=== PATIENT | male | born 1980 | race Caucasian/White ===

== ENCOUNTER 2019-07-23 19:57 | Emergency (ER) | payer BC ==
[2019-07-23] MEDS ORDERED: Bacitracin 1 PK ONE ×3 (21:02→21:08)
== END 2019-07-23 22:13 | disposition home or self-care (01) ==
LOC: NAV ERS 19:57
DX: T23.291A Burn of second degree of multiple sites of right wrist and hand, initial encounter (principal); T22.211A Burn of second degree of right forearm, initial encounter; F17.220 Nicotine dependence, chewing tobacco, uncomplicated; X12.XXXA Contact with other hot fluids, initial encounter
CPT/HCPCS: 16020